=== PATIENT | female | born 1960 | race Caucasian/White ===

== ENCOUNTER 2020-02-03 13:58 | Inpatient (IN) | payer MEDICARE ==
[~2020-02-03] VITALS: Ht 162.6 cm; Wt 58.1 kg
--- NOTE | 2020-02-03 14:20 | NUR ---
Dr. Arellano at bedside for MSE
--- NOTE | 2020-02-03 14:25 | NUR ---
RN supervisor roving department made aware. no 1:1 sitter available at this time. Frequent visual checks done
[2020-02-03 15:04] LABS: BASOPHILS % (AUTO) 0.8 % (0.0-2.0); EOSINOPHILS # (AUTO) 0.1 K/uL (0.0-0.7); EOSINOPHILS % (AUTO) 1.5 % (0.0-7.0); HEMATOCRIT 36.3 % (31.2-41.9); HEMOGLOBIN 12.1 g/dL (10.9-14.3); LYMPHOCYTES # (AUTO) 1.9 K/uL (20.0-40.0); LYMPHOCYTES % (AUTO) 32.5 % (20.5-51.5); MEAN CORPUSCULAR HEMOGLOBIN 29.7 uug (24.7-32.8); MEAN CORPUSCULAR HGB CONC 33 g/dL (32.3-35.6); MEAN CORPUSCULAR VOLUME 89.4 fL (75.5-95.3); MONOCYTES # (AUTO) 0.4 K/uL (2.0-10.0); MONOCYTES % (AUTO) 7.3 % (0.0-11.0); NEUTROPHILS # (AUTO) 3.3 K/uL (1.8-8.9); NEUTROPHILS % (AUTO) 57.9 % (38.5-71.5); PLATELET COUNT (AUTO) 197 K/uL (179-408); RED BLOOD CELL COUNT(AUTO) 4.06 MIL/uL (3.63-4.92); WHITE BLOOD COUNT (AUTO) 5.7 K/uL (3.8-11.8)
[2020-02-03 15:11] LABS: CREATININE 0.8 mg/dL (0.6-1.3); POTASSIUM 4.5 mmol/L (3.5-5.1)
[2020-02-03 15:17] LABS: BILIRUBIN,DIRECT 0.1 mg/dL (0.0-0.2); BILIRUBIN,TOTAL 0.1 mg/dL (0.2-1.0); TOTAL PROTEIN, SERUM 6.4 g/dL (6.4-8.2)
--- NOTE | 2020-02-03 15:20 | NUR ---
Patient has been medically cleared by Dr. Arellano
--- NOTE | 2020-02-03 15:47 | NUR ---
Pt. admitted to [facility] , under care of Dr. Klein / Dr. Kowalski Belongs List completed
[2020-02-03] MEDS ORDERED: SERT25TA PO (16:10)
[2020-02-03] MEDS ORDERED: DOXE50CA4 PO (16:10)
[2020-02-03] MEDS ORDERED: CLON0.2T PO (16:10)
[2020-02-03] MEDS ORDERED: LAMO25TA10 PO (16:10)
[2020-02-03] MEDS ORDERED: ALPR0.5T PO (16:10)
[2020-02-03] MEDS ORDERED: MAGNESIUM HYDROXIDE 30 ML LIQUID UDC PO PRN (16:30)
[2020-02-03] MEDS ORDERED: ACETAMINOPHEN 325 MG TABLET PO PRN (16:30)
[2020-02-03] MEDS ORDERED: CLONAZEPAM 0.5 MG TABLET PO PRN (16:30)
[2020-02-03] MEDS ORDERED: MAG HYDROX/AL HYDROX/SIMETH 30 ML LIQUID UDC PO PRN (16:30)
--- NOTE | 2020-02-03 18:02 | NUR ---
Received patient in stable condition. Alert and oriented x3. Homeless, recently kick out by family from home.DX: psychosis, suicidal ideation. History of depression and anxiety. As per endorse, Patient have pills, suspecting overdose. Patient is ambulatory. On hold 5150 until 02/04. Patient left hand abrasion noted. Took picture of wound. Patient is continent to urine and bowel. During conversation. Patient verbalize that she is depress and she have job but she quits because her family wants her to quit to stay the house but she said she donot have home now. Patient have disorganized thoughts and anxious. Denies suicidal ideation. will continue monitor for behavior problem and safety.
[2020-02-03 20:20] VITALS: BP 127/83
[2020-02-03] MEDS ORDERED: LAMOTRIGINE 25 MG TABLET PO SCH (22:00)
[2020-02-03] MEDS: DOXEPIN 25 MG CAPSULE PO SCH (22:00)
[2020-02-03] MEDS: CLONIDINE HCL 0.2 MG TABLET PO SCH (22:00)
[2020-02-03] MEDS ORDERED: CLONIDINE HCL 0.2 MG TABLET ONE (22:54)
[2020-02-03] MEDS ORDERED: DOXEPIN 25 MG CAPSULE ONE (22:54)
--- NOTE | 2020-02-03 23:30 | NUR ---
received to care, lying in bed, isolative, but pleasant upon approach. denies being currently suicidal, but admits to being depressed, and acknowledges her overdose attempt. she was concerned about her medications being ordered, but by the time they were ordered and obtained by the typists supervisor, she was asleep. as of 2329. she remains asleep. no distress noted. will continue to monitor closely.
[2020-02-04] MEDS: TEMAZEPAM 7.5 MG CAPSULE PO PRN (00:19)
[2020-02-04] MEDS: CLONIDINE HCL 0.2 MG TABLET PO SCH ×5 (00:20→20:34)
[2020-02-04] MEDS: DOXEPIN 25 MG CAPSULE PO SCH ×2 (00:20→21:00)
--- NOTE | 2020-02-04 00:20 | NUR ---
pt is now awake. bedtime medications were given along with PRN restoril, for insomnia. currently eating a snack. no distress noted. will continue to monitor closely.
--- NOTE | 2020-02-04 06:00 | NUR ---
slept 6.5 hours. is now awake. assisted with am care, and shower. no distress noted.
[2020-02-04 07:30] VITALS: BP 118/73
[2020-02-04 07:53] LABS: BILIRUBIN,TOTAL 0.2 mg/dL (0.2-1.0); CREATININE 0.8 mg/dL (0.6-1.3); POTASSIUM 3.7 mmol/L (3.5-5.1); TOTAL PROTEIN, SERUM 6.3 g/dL (6.4-8.2)
[2020-02-04] MEDS ORDERED: LAMOTRIGINE 25 MG TABLET PO SCH (09:00)
[2020-02-04] MEDS ORDERED: DOXEPIN 25 MG CAPSULE PO SCH (09:00)
[2020-02-04] MEDS: SERTRALINE HCL 50 MG TABLET PO SCH (15:19)
--- NOTE | 2020-02-04 15:36 | NUR ---
GPS: received patient AOx3, ambulatory, compliant patient calm and redirectable, no distress , denies SI and HI at this time
[2020-02-04 17:43] VITALS: BP 150/80
--- NOTE | 2020-02-04 18:54 | NUR ---
patient calm cooperative, will continue monitor
[2020-02-04 20:13] VITALS: BP 96/60
[2020-02-04] MEDS: LAMOTRIGINE 25 MG TABLET PO SCH (21:00)
--- NOTE | 2020-02-04 22:00 | NUR ---
received to lying in bed, asleep, but easy to awaken. pleasant upon approach. continues to deny SI. compliant with medications and staff direction. as of 2199, she appears to be asleep. no distress noted. will continue to monitor closely.
--- NOTE | 2020-02-05 06:00 | NUR ---
slept 8.5 hours. continues to sleep. no distress noted.
[2020-02-05 07:30] VITALS: BP 132/78
[2020-02-05] MEDS: SERTRALINE HCL 50 MG TABLET PO SCH (09:29)
[2020-02-05] MEDS: CLONIDINE HCL 0.2 MG TABLET PO SCH ×4 (09:30→20:32)
[2020-02-05] MEDS: DOXEPIN 25 MG CAPSULE PO SCH ×2 (09:30→20:31)
--- NOTE | 2020-02-05 11:44 | NUR ---
EDITH Initial Discharge Note: Patient was recently residing with her mother and sister at [address] [place] [address] however patient is not welcome back. Patient will be discharged to a [facility] called [address] [address] spoke with Jenny ([phone]). EDITH will continue to work with patient, family, and MD to ensure a safe and proper discharge plan.
--- NOTE | 2020-02-05 11:45 | NUR ---
Brief Substance Abuse Intervention: Patient was provided with a brief substance abuse intervention and referred to [facility] [address], [place] [address] ([phone]); [facility] [address], [address], [place] [address] ([phone]); [facility] ([phone]); [facility] ([phone]); [facility] ([phone]); and National Suicide Prevention Lifeline (628-716-5567).
--- NOTE | 2020-02-05 12:19 | NUR ---
EDITH Coordination of Care: EDITH spoke with Michael at [facility] [address], [place] and the contact number is ([phone]) and will be faxing this marine underwriter a referral packet to fill out and fax back to get patient's continued care for outpatient psychiatric services. Addendum: 02/05/20 at 1311 by SOPHY LIRA EDITH faxed patient's referral packet to the [facility] mentioned [facility]. Awaiting for outpatient services information.
--- NOTE | 2020-02-05 13:50 | NUR ---
clonidine 0.2 mg not administered B/P-114/ 76
--- NOTE | 2020-02-05 15:31 | NUR ---
Social Work Firearms Report ([employer]): Automotive Service Assistant completed and submitted a [employer] firearms report for 5150 danger to self certification. A copy of report has been placed in patient chart.
[2020-02-05 16:00] VITALS: BP 105/64
--- NOTE | 2020-02-05 19:40 | NUR ---
Seen ambulating in the hallway in steady gait. No s/s of respiratory distress. No s/s of pain/discomforts. Safety measures and afll precaution maintained. Continue care as planned.
[2020-02-05] MEDS: LAMOTRIGINE 25 MG TABLET PO SCH (20:31)
--- NOTE | 2020-02-05 21:00 | NUR ---
Clonidine held BP 103/70. Denies any s/s of hypo/hypertension.Will monitor.
[2020-02-05 21:22] VITALS: BP 103/70
[2020-02-05] MEDS: TEMAZEPAM 7.5 MG CAPSULE PO PRN (23:17)
--- NOTE | 2020-02-06 06:19 | NUR ---
Slept 6.45 hours. No complaint presented all night. All needs attended and met. No significant event reported. VS stable.
[2020-02-06 07:30] VITALS: BP 130/82
[2020-02-06] MEDS: SERTRALINE HCL 50 MG TABLET PO SCH (08:22)
[2020-02-06] MEDS: CLONIDINE HCL 0.2 MG TABLET PO SCH ×4 (08:23→20:45)
[2020-02-06] MEDS: DOXEPIN 25 MG CAPSULE PO SCH ×2 (08:23→20:44)
--- NOTE | 2020-02-06 12:13 | NUR ---
SW Discharge Note (Early Entry) Patient will be discharged Sunday02/07/20 to [facility] [address] [place] [address] spoke with Jenny ([phone]) who confirmed patient is accepted and can arrive today. Patients sister, Radha ([phone]) will be picking up the patient and transport her to the facility. Patient is aware and agreeable with discharge plans. Patient denies suicidal or homicidal ideation. Patient presents with appropriate mood and congruent affect. Patient is referred to [facility] ([phone]) and has an appointment scheduled on Monday February 17, 2020 at 10am with a clinician Jazmyn via telephone and will be following up with psychiatrist Dr. aRmos and has an appointment scheduled on Tuesday February 18, 2020 1pm via telephone. Patient will be following up with her primary care physician Dr. Huffman at [address] [place], [address] ([phone]) and they will be following up with the patient upon discharge. Patient has sponsor, Ophelia Wong ([phone]) who is aware of patients discharge plan and will be following up with the patient for continued support and participation in her Narcotics Anonymous (NA) meetings. Patient was provided with a brief substance abuse intervention and referred to [facility] [address] [place] [address] ([phone]); [place] [facility] [address], [address], [place] [address] ([phone]); [facility] ([phone]); [facility] ([phone]); [facility] ([phone]); and National Suicide Prevention Lifeline (964-064-8645). Patient was provided with the homeless group home packet, which includes a list of emergency shelters, housing resources, drop in centers, and showers/hot meals centers. This also included the Homeless Information Hotline (375)-591-3270 or 211, [facility] [phone], and the [facility] ([phone]. Patient signed the homeless waiver upon discharge, copy was placed in the chart, and resources were given.
--- NOTE | 2020-02-06 15:59 | NUR ---
Social Work Individual Therapy: reed worker met with patient for brief counseling to address suicidal ideation. Pt is calm and cooperative. Pt verbalizes understanding regarding her situation. reed worker and pt discussed pts motivation to change alcohol abuse behavior. Pt has appropriate eye contact and is actively engaged. SW provided emotional processing with actively listening. Pt denies suicidal ideation at this time. SW encouraged pt to attend group.
[2020-02-06 16:00] VITALS: BP 114/64
--- NOTE | 2020-02-06 17:42 | NUR ---
GPS: received patient AOx3-4 , patient compliant with medication , denies Si and HI, patient ask for pain medication , no distress at this time
[2020-02-06 20:30] VITALS: BP 126/77
[2020-02-06] MEDS: LAMOTRIGINE 25 MG TABLET PO SCH (20:44)
--- NOTE | 2020-02-06 21:45 | NUR ---
resting in bed upon initial rounds. AAOx2-3 Compliant with meds. Tolerated po meds well. No signs of agitation or restlessness noted. Denies any pain nor any discomfort. Will monitor patient for any behavioral issues. No distress noted. VSS.
--- NOTE | 2020-02-07 06:08 | NUR ---
slept well throughout the shift. Slept for 8hours and 45 minutes. all needs attended and met. No significant report noted. Quiet night. VSS.
[2020-02-07 07:30] VITALS: BP 109/78
[2020-02-07] MEDS: DOXEPIN 25 MG CAPSULE PO SCH (08:54)
[2020-02-07] MEDS: SERTRALINE HCL 50 MG TABLET PO SCH (08:57)
[2020-02-07] MEDS: CLONIDINE HCL 0.2 MG TABLET PO SCH ×2 (09:07→12:57)
--- NOTE | 2020-02-07 11:52 | NUR ---
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 Patient's sister Radha will be providing transportation. All belongings given back to patient . reviewed, prescriptions/medications, diet, skin care, follow up with PMD. , has referral to [facility] . Patient to follow up with safety reviewed and emphasized. Patient has appointment to Dr Ramos February 18, 2020.. Reviewed discharged instruction
[2020-02-07 12:57] VITALS: BP 127/78
--- NOTE | 2020-02-07 13:13 | NUR ---
Gps/In Service Education Teacher- Discharged to [facility] via private car accompanied by her sister Radha morgan all belongings given back to patient. Patient in good spirit with no new c/o offered.
== END 2020-02-07 13:15 | disposition home or self-care (01) | DRG 885 ==
LOC: ER 13:58 → GPS 16:17
PROVIDERS: ADMIT Psychiatry & Neurology Psychiatry; ATTEND Nurse Practitioner Acute Care
DX: F31.30 Bipolar disorder, current episode depressed, mild or moderate severity, unspecified (principal); I10 Essential (primary) hypertension; F90.9 Attention-deficit hyperactivity disorder, unspecified type; Z59.0 Homelessness; F42.9 Obsessive-compulsive disorder, unspecified; F29 Unspecified psychosis not due to a substance or known physiological condition; Z91.5 Personal history of self-harm; F11.11 Opioid abuse, in remission; F10.21 Alcohol dependence, in remission; F20.0 Paranoid schizophrenia
CPT/HCPCS: 36415; 85025; 93005; A4663